=== PATIENT | male | born 1950 | race Caucasian/White ===

== ENCOUNTER 2017-01-10 14:53 | Emergency (ER) | payer OTHER ==
[~2017-01-10] VITALS: Ht 170.2 cm; Wt 67.1 kg
[2017-01-10 15:12] VITALS: BP 168/84; PULSE 77; RESP 16; TEMP 98.6; O2SAT 99
[2017-01-10] MEDS ORDERED: SODIUM CHLORIDE 0.9% FLUSH 10 ML FLUSH IVF PRN (16:15)
[2017-01-10] MEDS ORDERED: LORazepam 2 MG/ML VIAL IVS ONE (16:15)
[2017-01-10] MEDS ORDERED: DILA100C PO ×2 (16:22→17:38)
[2017-01-10 16:24] VITALS: O2SAT 97
[2017-01-10] MEDS ORDERED: FOSPHENYTOIN INJ 1,000 MGPE in SODIUM CHLORIDE 0.9% INJ 50 ML IV ONE (16:30)
[2017-01-10 16:35] LABS: AUTOMATED NEUTROPHIL # 6.8 TH/MM3 (1.8-7.7); BASOPHIL # 0.1 TH/MM3 (0-0.2); BASOPHIL % 0.7 % (0.0-2.0); EOSINOPHIL # 0.1 TH/MM3 (0-0.4); EOSINOPHIL % 0.9 % (0.0-4.0); HEMATOCRIT 43.5 % (39.0-51.0); HEMO FLAGS DIFF FINAL; LYMPH % 10.9 % (9.0-44.0); LYMPHOCYTE # 0.9 TH/MM3 (1.0-4.8); MEAN CELL VOLUME 88.5 FL (80.0-100.0); MEAN CORPUSCULAR HEMOGLOBIN 29.1 PG (27.0-34.0); MEAN CORPUSCULAR HGB CONC 32.9 % (32.0-36.0); MONO % 8.1 % (0.0-8.0); NEUT % 79.4 % (16.0-70.0); PLATELET COUNT 248 TH/MM3 (150-450); RED BLOOD COUNT 4.91 MIL/MM3 (4.50-5.90); RED CELL DISTRIBUTION WIDTH 12.1 % (11.6-17.2); WHITE BLOOD COUNT 8.6 TH/MM3 (4.0-11.0)
--- NOTE | 2017-01-10 16:42 | PD ---
HPI Chief Complaint: Seizure Time Seen by Provider: 16:05 Travel History International Travel<30 days: No Contact w/Intl Traveler<30days: No Traveled to known affect area: No History of Present Illness HPI Patient's 66 years old. He has a history of epilepsy. 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 The patient was then brought to the ER by private vehicle. At the time of ER arrival the patient can stand and place himself on the bed however his offers majority of the historical data. He stopped taking Dilantin about 3 months ago. His last seizure before then was in 2004. He was diagnosed epilepsy almost 22 years ago. He does not drink alcohol or smoke. PFSH Past Medical History Seizures: Yes Social History Tobacco Use: No Allergies-Medications (Allergen,Severity, Reaction): Coded Allergies: Penicillin (Verified Allergy, Intermediate, hives, 01/10/17) Reported Meds & Prescriptions Reported Meds & Active Scripts Active Dilantin (Phenytoin Extended) 100 Mg Cap 200 Mg PO BID 15 Days Review of Systems Except as stated in HPI: all other systems reviewed are Neg General / Constitutional: No: Fever, Chills Neurologic: Positive: Seizures Physical Exam Narrative GENERAL: 66-year-old male well-nourished well-developed makes eye contact however does not answer questions at the time of interview. General appearance is consistent with a postictal state. SKIN: Focused skin assessment warm/dry. HEAD: Atraumatic. Normocephalic. EYES: Pupils equal and round. No scleral icterus. No injection or drainage. ENT: No nasal bleeding or discharge. Mucous membranes pink and moist. NECK: Trachea midline. No JVD. CARDIOVASCULAR: Regular rate and rhythm. No murmur appreciated. RESPIRATORY: No accessory muscle use. Clear to auscultation. Breath sounds equal bilaterally. GASTROINTESTINAL: Abdomen soft, non-tender, nondistended. Hepatic and splenic margins not palpable. MUSCULOSKELETAL: No obvious deformities. No clubbing. No cyanosis. No edema. NEUROLOGICAL: Patient is moving all extremities. He is not verbal at the time of initial interview however does make eye contact. The pupils are equal and reactive to light. Appearance is consistent with a postictal state. PSYCHIATRIC: Appropriate mood and affect; insight and judgment normal. Data Data Last Documented VS Vital Signs Date Time Temp Pulse Resp B/P Pulse Ox O2 Delivery O2 Flow Rate FiO2 01/10/17 16:25 79 13 99 Room Air 01/10/17 15:12 98.6 168/84 Vital signs reviewed Orders Complete Blood Count With Diff (01/10/17 16:06) Basic Metabolic Panel (Bmp) (01/10/17 16:06) Alcohol (Ethanol) (01/10/17 16:06) Phenytoin (Dilantin) (01/10/17 16:06) Drug Screen, Random Urine (01/10/17 16:06) Electrocardiogram (01/10/17 ) Blood Glucose (01/10/17 16:06) Ecg Monitoring (01/10/17 16:06) Iv Access Insert/Monitor (01/10/17 16:06) Oximetry (01/10/17 16:06) Sodium Chloride 0.9% Flush (Ns Flush) (01/10/17 16:15) Lorazepam Inj (Ativan Inj) (01/10/17 16:15) Fosphenytoin Inj (Cerebyx Inj) (01/10/17 16:30) Labs Laboratory Tests Test 01/10/17 01/10/17 16:21 16:42 White Blood Count 8.6 TH/MM3 Red Blood Count 4.91 MIL/MM3 Hemoglobin 14.3 GM/DL Hematocrit 43.5 % Mean Corpuscular Volume 88.5 FL Mean Corpuscular Hemoglobin 29.1 PG Mean Corpuscular Hemoglobin 32.9 % Concent Red Cell Distribution Width 12.1 % Platelet Count 248 TH/MM3 Mean Platelet Volume 7.5 FL Neutrophils (%) (Auto) 79.4 % Lymphocytes (%) (Auto) 10.9 % Monocytes (%) (Auto) 8.1 % Eosinophils (%) (Auto) 0.9 % Basophils (%) (Auto) 0.7 % Neutrophils # (Auto) 6.8 TH/MM3 Lymphocytes # (Auto) 0.9 TH/MM3 Monocytes # (Auto) 0.7 TH/MM3 Eosinophils # (Auto) 0.1 TH/MM3 Basophils # (Auto) 0.1 TH/MM3 CBC Comment DIFF FINAL Differential Comment Sodium Level 138 MEQ/L Potassium Level 4.0 MEQ/L Chloride Level 101 MEQ/L Carbon Dioxide Level 30.2 MEQ/L Anion Gap 7 MEQ/L Blood Urea Nitrogen 14 MG/DL Creatinine 0.81 MG/DL Estimat Glomerular Filtration 96 ML/MIN Rate Random Glucose 98 MG/DL Calcium Level 8.5 MG/DL Phenytoin (Dilantin) Level LESS THAN 0.4 MCG/ML Ethyl Alcohol Level LESS THAN 3 MG/DL Urine Opiates Screen NEG Urine Barbiturates Screen NEG Urine Amphetamines Screen NEG Urine Benzodiazepines Screen NEG Urine Cocaine Screen NEG Urine Cannabinoids Screen NEG MDM Medical Decision Making Medical Screen Exam Complete: Yes Emergency Medical Condition: Yes Differential Diagnosis Seizure, antiepileptic noncompliance, electrolyte imbalance, pseudoseizure, drug or alcohol intoxication Narrative Course CBC & BMP Diagram 01/10/17 16:21 Urine drug screen is wilkerson-negative Dilantin is undetectable as expected Alcohol is less than 3 Upon reassessment at approximately 5:20 PM the patient was found resting comfortably in bed. He states he felt much better. He reports quitting Dilantin due to GERD type symptoms. We discussed a plan for short term follow- up with PMD or a neurologist and a referral was provided for Dr Murphy. He agreed to a short course of Dilantin until time of follow up. His work up as we can see is reassuring and admission is unlikely to yield any additional safety or diagnostic benefit at this point. He was loaded with Cerebryx here. Diagnosis Primary Impression: Seizure Additional Impression: Right bundle branch block Referrals: Jamil Murphy MD 2 days Primary Care Physician Additional Instructions: You have a choice when it comes to health care, and we are glad that you chose [facility]. Hopefully, we have met your expectations on today's visit. You are welcome to return to [facility] at any time, as we are committed to meeting the health care needs of our community. Med/Other Pt SpecificInfo: Prescription(s) given Scripts Phenytoin Extended (Dilantin)100 Mg [id number] Mg PO BID 15 Days Ref 0 Prov:Faraz Rincon MD 01/10/17 Disposition: 01 DISCHARGE HOME Condition: Stable Faraz Rincon MD Jan 10, 2017 16:41
[2017-01-10 16:44] LABS: CHLORIDE 101 MEQ/L (98-107); SODIUM (NA) 138 MEQ/L (136-145)
[2017-01-10 16:47] LABS: ANION GAP 7 MEQ/L (5-15); BICARBONATE 30.2 MEQ/L (21.0-32.0); BLOOD UREA NITROGEN 14 MG/DL (7-18)
[2017-01-10 16:51] LABS: GLOMERULAR FILTRATION RATE 96 ML/MIN (>89)
[2017-01-10 17:18] LABS: AMPHETAMINE, URINE NEG (NEG); BARBITURATES, URINE NEG (NEG); COCAINE, URINE NEG (NEG)
[2017-01-10 18:10] VITALS: BP 156/87
--- NOTE | 2017-01-11 09:38 | EKG ---
Date Performed: 01/10/2017 Time Performed: 16:20:50 PTAGE: 66 years EKG: SINUS BRADYCARDIA RIGHT BUNDLE BRANCH BLOCK ABNORMAL ECG NO PREVIOUS TRACING DOCTOR: Nick Davila Interpretating Date/Time 01/11/2017 09:37:54
== END 2017-01-10 18:18 | disposition home or self-care (01) ==
LOC: PHED 14:53
DX: R56.9 Unspecified convulsions (principal); I45.10 Unspecified right bundle-branch block; R94.31 Abnormal electrocardiogram [ECG] [EKG]; Z86.69 Personal history of other diseases of the nervous system and sense organs
CPT/HCPCS: 80048; 80185; 80307; 85025; 93005; 96365; 96375; 99284; J2060; Q2009